=== PATIENT | female | born 1995 | race Caucasian/White ===

== ENCOUNTER 2018-07-08 12:49 | Emergency (ER) | payer OTHER ==
[2018-07-08 13:34] VITALS: BP 101/63
[2018-07-08] MEDS ORDERED: predniSONE TAB* 20 MG PO ONE ×2 (14:32→14:33)
--- NOTE | 2018-07-08 14:40 | UC ---
Skin Complaint HPI - HPI Summary HPI Summary: Patient was stug by a bee yesterday, today the under side of ther right arm has a large raised red hive from the reaction site. no other symptoms - History of Current Complaint Chief Complaint: UCSkin Time Seen by Provider: 07/08/18 14:26 Stated Complaint: BEE STING Hx Obtained From: Patient Hx Last Menstrual Period: 06/19/18 ?: No Onset/Duration: Sudden Onset, Lasting Hours Skin Exposure Onset/Duration: Hours Ago Timing: Constant Onset Severity: Mild Current Severity: Moderate Pain Intensity: 0 Location: Discrete Character: Pruritus, Hives, Redness, Raised Aggravating Factor(s): Nothing - Allergy/Home Medications Allergies/Adverse Reactions: Allergies Allergy/AdvReac Type Severity Reaction Status Date / Time No Known Allergies Allergy Verified 07/08/18 13:24 Review of Systems Constitutional: Negative Skin: Rash Eyes: Negative ENT: Negative Respiratory: Negative Cardiovascular: Negative Gastrointestinal: Negative Genitourinary: Negative Motor: Negative Neurovascular: Negative Musculoskeletal: Negative Neurological: Negative Psychological: Negative Is Patient Immunocompromised?: No All Other Systems Reviewed And Are Negative: Yes PMH/Surg Hx/FS Hx/Imm Hx Previously Healthy: Yes - Surgical History Surgical History: None - Family History Known Family History: Negative: Hypertension - Social History Alcohol Use: None Substance Use Type: None Smoking Status (MU): Never Smoked Tobacco Have You Smoked in the Last Year: No - Immunization History Most Recent Influenza Vaccination: 06/24/14 Most Recent Tetanus Shot: 10/01/14 Most Recent Pneumonia Vaccination: never Vaccination Up to Date: Yes Physical Exam Triage Information Reviewed: Yes Appearance: Well-Appearing, Well-Nourished, Pain Distress Vital Signs: Initial Vital Signs Temp 98.2 F 07/08/18 13:25 Pulse 66 07/08/18 13:25 Resp 16 07/08/18 13:25 BP 101/63 07/08/18 13:25 Pulse Ox 100 07/08/18 13:25 Vital Signs Reviewed: Yes Eye Exam: Normal ENT Exam: Normal Dental Exam: Normal Neck exam: Normal Respiratory Exam: Normal Respiratory: Positive: Chest non-tender, Lungs clear, Normal breath sounds Cardiovascular Exam: Normal Cardiovascular: Positive: RRR, No Murmur, Pulses Normal Abdominal Exam: Normal Abdomen Description: Positive: Nontender, No Organomegaly, Soft Musculoskeletal Exam: Normal Musculoskeletal: Positive: Strength Intact Neurological Exam: Normal Psychological Exam: Normal Skin: Positive: significant lesion(s) - large hive under the right arm Course/Dx - Course Course Of Treatment: hx obtained, exam performed, meds reviewed, steroids given and prescribed. - Differential Diagnoses - Skin Complaint Differential Diagnoses: Allergic Reaction, Cellulitis, Contact Dermatitis - Diagnoses Provider Diagnoses: allergic reaction to bee sting Discharge - Sign-Out/Discharge Documenting (check all that apply): Patient Departure All imaging exams completed and their final reports reviewed: No Studies - Discharge Plan Condition: Stable Disposition: HOME Prescriptions: predniSONE TAB* [Deltasone 20 MG TAB*] 20 mg PO DAILY #18 tab Referrals: No Primary Care Phys,NOPCP [Primary Care Provider] - Additional Instructions: 1. take the medication as prescribed. 2 Follow up if you develop increased redness, swelling or fever - Billing Disposition and Condition Condition: STABLE Disposition: Home
== END 2018-07-08 14:45 | disposition home or self-care (01) ==
LOC: UCCORT 12:49
DX: T63.441A Toxic effect of venom of bees, accidental (unintentional), initial encounter (principal); L50.9 Urticaria, unspecified; Y92.9 Unspecified place or not applicable
CPT/HCPCS: 99212; G0463; J7512

== ENCOUNTER 2018-10-14 10:32 | Emergency (ER) | payer OTHER ==
--- NOTE | 2018-10-14 10:51 | UC ---
Respiratory Complaint HPI - HPI Summary HPI Summary: Patient is a 23 year old female, who present today to the urgent care with cold symptoms for past 2 days She works at [employer] and reports a sick contact at work. Reports cough productive of greenish phlegm and sore throat along with the right ear pain today morning Denies any body aches fevers or chills. Denies any chest pain or shortness of breath. Denies any abdominal pain , nausea or vomiting , diarrhea or constipation. - History of Current Complaint Chief Complaint: UCGeneralIllness Stated Complaint: COUGH Time Seen by Provider: 10/14/18 10:44 Hx Obtained From: Patient Hx Last Menstrual Period: 10/11/18 ?: No Pain Intensity: 8 - Allergies/Home Medications Allergies/Adverse Reactions: Allergies Allergy/AdvReac Type Severity Reaction Status Date / Time No Known Allergies Allergy Verified 10/14/18 10:39 Home Medications: Home Medications Midodrine HCl 5 mg PO TID 10/14/18 [History Confirmed 10/14/18] PMH/Surg Hx/FS Hx/Imm Hx - Additional Past Medical History Additional PMH: Low blood pressure on midodrine Previously Healthy: Yes - Surgical History Surgical History: None Surgery Procedure, Year, and Place: denies - Family History Known Family History: Negative: Hypertension - Social History Alcohol Use: None Substance Use Type: None Smoking Status (MU): Never Smoked Tobacco Have You Smoked in the Last Year: No - Immunization History Most Recent Influenza Vaccination: 06/24/14 Most Recent Tetanus Shot: 10/01/14 Most Recent Pneumonia Vaccination: never Vaccination Up to Date: Yes Review of Systems All Other Systems Reviewed And Are Negative: Yes Constitutional: Positive: Negative Skin: Positive: Negative Eyes: Positive: Negative ENT: Positive: Sore Throat, Other - Congestion Respiratory: Positive: Cough - Productive of greenish phlegm Cardiovascular: Positive: Negative Gastrointestinal: Positive: Negative Genitourinary: Positive: Negative Motor: Positive: Negative Neurovascular: Positive: Negative Musculoskeletal: Positive: Negative Neurological: Positive: Negative Psychological: Positive: Negative Is Patient Immunocompromised?: No Physical Exam - Summary Physical Exam Summary: Physical Exam: Const: Appears well. No signs of apparent distress present. Alert and oriented x 3. Musculo: Walks with a normal gait. Head/Face: Atraumatic, normocephalic on inspection. Eyes: EOMI and PERRLA in both eyes. Conjunctivae clear. No discharge noted ENT: Hearing normal, right TM normal appearing, left TM not visualized due to wax Mild pharyngeal erythema without any exudates No tender lymphadenopathy noted Respiratory: Respirations are unlabored. Lungs clear to auscultation bilaterally, no wheezing , rhonchi or rales noted . CVS: Regular rate and Rhythm, S1S2 normal , no murmurs identified. Extremities: Peripheral circulation is grossly normal. Pulses 2+ Abdomen : Soft non tender , nondistended , Bowel sounds present . No guarding , rebound tenderness or rigidity noted. Skin: No lesions or rash located on the upper extremities or on the lower extremities. Neuro: Cranial nerves II to XII intact, motor and sensory intact. DTR Intact bilaterally. Mood is normal. Affect is normal. Triage Information Reviewed: Yes Vital Signs: Initial Vital Signs Temp 97.9 F 10/14/18 10:35 Pulse 81 10/14/18 10:35 Resp 18 10/14/18 10:35 BP 114/73 10/14/18 10:35 Pulse Ox 98 10/14/18 10:35 Vital Signs Reviewed: Yes Diagnostic Evaluation - Laboratory O2 Sat by Pulse Oximetry: 98 Respiratory Course/Dx - Course Course Of Treatment: During the visit today, we obtained a rapid flu and strep test , both of which tested negative. We discussed the findings and further plan to treat it as a viral illness. Patient expressed understanding . - Differential Dx/Diagnosis Provider Diagnosis: Viral URI with cough Discharge - Sign-Out/Discharge Documenting (check all that apply): Patient Departure All imaging exams completed and their final reports reviewed: No Studies - Discharge Plan Condition: Stable Disposition: HOME Patient Education Materials: Viral Syndrome (ED) Referrals: No Primary Care Phys,NOPCP [Primary Care Provider] - [facility] [place] [facility] [Outside] - 1 Week Additional Instructions: He seemed to have viral illness. Keep yourself hydrated. Saltwater gargles and throat lozenges will be helpful. Take ibuprofen as needed for fever. Follow up with primary care doctor in a week. Return to Urgent care / ER if symptoms get worse. - Billing Disposition and Condition Condition: STABLE Disposition: Home
[2018-10-14 11:01] VITALS: BP 114/73
[2018-10-14 11:23] LABS: Influenza A Molecular NEGATIVE (Negative); Influenza B Molecular NEGATIVE (Negative)
== END 2018-10-14 11:48 | disposition home or self-care (01) ==
LOC: UCEAST 10:32
DX: J06.9 Acute upper respiratory infection, unspecified (principal); R05 Cough; I95.9 Hypotension, unspecified
CPT/HCPCS: 87651; 99211; G0463

== ENCOUNTER 2019-03-25 21:18 | Emergency (ER) | payer MEDICAID, OTHER ==
[2019-03-25 21:23] VITALS: BP 122/79
--- OUTSIDE RECORDS SUMMARY | 2019-03-25 21:28 | XMS REPORT | Continuity of Care Document ---
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 Payers Date Identification Numbers Payment Provider Subscriber Policy Number: [id number] [facility] Eula Tan PayID: [id number] [address] [place] [address] Policy Number: [id number] Medicaid [place] Eula Tan PayID: [id number] [address] [place] [address] Family History Date Family Member(s) Observation Comments Father A&W Mother A&W First Son A&W First Brother Enlarged Heart Second Brother A&W First Sister A&W Paternal Grandfather due to Old Age () Paternal Grandmother A&W Maternal Grandfather [place] Maternal Grandfather Kidney Disease Maternal Grandfather Lung problems Maternal Grandmother A&W Social History Type Date Description Comments Sex Unknown Education Highest level completed, 12th grade Marital Status Single Lives With Boyfriend Lives With Son Pets 3 dogs Pets 2 cats Pets 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 Tobacco Use Start: Unknown Never Smoked Cigarettes ETOH Use Denies alcohol use Recreational Drug Use Denies Drug Use Tobacco Use Start: Unknown Patient has never smoked Smoking Status Reviewed: 03/01/19 Patient has never smoked Exercise Type/Frequency Exercises sporadically Seat Belt/Car Seat Always uses seat belt STD's No STD History Allergies, Adverse Reactions, Alerts Description No Known Drug Allergies Medications Active Medications SIG Qnty Indications Ordering Provider Date One Daily 1 by mouth 90tabs ERIN Mathis 05/26/2014 every day 27-0.8mg Tablets History Medications Dicloxacillin Sodium 1 tablet by Jackelyn Harrell MD 02/17/2015 - 500mg mouth every 6 03/01/2019 Capsules hours Dicloxacillin Sodium 1 tablet by 40capgodfrey Vaughn CNM 01/23/2015 - 500mg mouth every 6 02/04/2015 Capsules hours Keflex 1 by mouth four 28caps Ike Brown, 10/19/2014 - 250mg Capsules times a day x 7 M.D. 10/28/2014 days No Active Medications Unknown 09/19/2013 - 05/26/2014 Medications Administered in Office Medication SIG Qnty Indications Ordering Provider Date PT SCRN Tbco Id as Non User Bren Julian CNM 03/01/2019 Injection PT SCRN Tbco Id as Non User Jackelyn Virk MD 02/15/2019 Injection Immunizations CPT Code Status Date Vaccine Lot # [id number] Given 10/01/2014 Tetnus, Diptheria Toxoids And Acellular Pertussis, [id number] PT > 7Yrs Old [id number] Given 06/24/2014 Influenza Virus Vaccine 3Years Or Older Vital Signs Date Vital Result Comment 03/01/2019 10:03am BP Systolic 112 mmHg BP Diastolic 72 mmHg Height 70 inches 5'10" Weight 233.00 lb BMI (Body Mass Index) 33.4 kg/m2 5 Parity 1 02/15/2019 8:52am BP Systolic 116 mmHg BP Diastolic 60 mmHg Height 70 inches 5'10" Weight 229.00 lb BMI (Body Mass Index) 32.9 kg/m2 Last Menstrual Period 1697171 4 Parity 1 01/03/2019 12:59pm BP Systolic 112 mmHg BP Diastolic 68 mmHg Height 70 inches 5'10" Weight 232.00 lb BMI (Body Mass Index) 33.3 kg/m2 Last Menstrual Period 1998452 4 Parity 1 02/17/2015 8:06am BP Systolic 120 mmHg BP Diastolic 82 mmHg Height 70 inches 5'10" Weight 197.00 lb BMI (Body Mass Index) 28.3 kg/m2 Last Menstrual Period 2208413 3 Parity 1 02/11/2015 9:58am BP Systolic 124 mmHg BP Diastolic 64 mmHg Body Temperature 98.6 F Height 70 inches 5'10" Weight 200.00 lb BMI (Body Mass Index) 28.7 kg/m2 3 Parity 1 01/26/2015 1:03pm BP Systolic 122 mmHg BP Diastolic 70 mmHg Height 70 inches 5'10" Weight 206.00 lb BMI (Body Mass Index) 29.6 kg/m2 Last Menstrual Period 2590169 3 Parity 1 01/23/2015 1:56pm BP Systolic 104 mmHg BP Diastolic 62 mmHg Body Temperature 98.4 F Height 70 inches 5'10" Weight 206.00 lb BMI (Body Mass Index) 29.6 kg/m2 Last Menstrual Period 7537891 3 Parity 1 09/22/2014 10:33am BP Systolic 124 mmHg BP Diastolic 76 mmHg Height 70 inches 5'10" Weight 208.00 lb BMI (Body Mass Index) 29.8 kg/m2 Last Menstrual Period 3039703 3 Parity 0 05/26/2014 1:33pm BP Systolic 118 mmHg BP Diastolic 68 mmHg Height 70 inches 5'10" Weight 180.00 lb BMI (Body Mass Index) 25.8 kg/m2 Last Menstrual Period 3986924 3 Parity 0 09/19/2013 3:05pm BP Systolic 102 mmHg BP Diastolic 58 mmHg Height 70 inches 5'10" Weight 176.00 lb BMI (Body Mass Index) 25.3 kg/m2 Last Menstrual Period 5636596 1 Parity 0 Results Test Date Facility Test Result H/L Range Note Laboratory test 01/25/2019 [facility] HCG < 0.60 1 [place] [address] mIU/mL [phone] Laboratory test 01/07/2019 [facility] HCG 14.44 mIU/ mL 2 [place] [address] [phone] Laboratory test 01/03/2019 [facility] HCG 167.61 3 [place] [address] mIU/mL [phone] CBC With No Diff 01/01/2015 [facility] White Blood 6.9 10^3/uL N 4.8-10.8 [place] [address] Count [phone] Red Blood Count 3.64 10^6/uL Low 4.0-5.4 Hemoglobin 11.2 g/dL Low 12.0-16.0 Hematocrit 33 % Low 35-47 Mean Corpuscular Volume 91 fL N 80-97 Mean Corpuscular Hemoglobin 31 pg N 27-31 Mean Corpuscular HGB Conc 34 g/dL N 31-36 Red Cell Distribution Width 13 % N 10.5-15 Platelet Count 163 10^3/uL N 150-450 Mean Platelet Volume 8 um3 N 7.4-10.4 Laboratory test 11/28/2014 [facility] Group B Strep (SEE NOTE) 4 [place] [address] Culture Screen [phone] Urine Culture And 11/28/2014 [facility] Urine Culture (SEE NOTE ) 5 Sensitivities [place], [place] [address] [phone] Urinalysis Profile 10/19/2014 [facility] [place] [address] [phone] Urine Appearance Cloudy N Urine Specific [place] 1.015 N 1.010-1.030 Urine pH 6.0 N 5-9 Urine Urobilinogen Negative N Negative Urine Ketones Negative N Negative Urine Protein 2+(100 mg/dL) Abnormal Negative Urine Leukocytes 1+ Abnormal Negative Urine Blood 3+ Abnormal Negative Urine Nitrite Negative N Negative Urine Bilirubin Negative N Negative Urine Glucose Negative N Negative Urine White Blood Cell 3+(>20/hpf) Abnormal Absent Urine Red Blood Cell 3+(>10/hpf) Abnormal Absent Urine Bacteria Absent N Absent Urine Squamous Epithelial Cell Present Abnormal Absent Urine Culture And 10/19/2014 [facility] Urine Culture (SEE NOTE ) 6 [place] [address] [phone] Laboratory test 10/01/2014 [facility] Glucose 1 HR 76 mg/dL N 70-160 [place] [address] Post Prandial [phone] CBC With No Diff 10/01/2014 [facility] White Blood 8.4 10^3/uL N 4.8-10 [place] [address] Count .8 [phone] Red Blood Count 3.50 10^6/uL Low 4.0-5.4 Hemoglobin 11.6 g/dL Low 12.0-16.0 Hematocrit 34 % Low 35-47 Mean Corpuscular Volume 98 fL High 80-97 Mean Corpuscular Hemoglobin 33 pg High 27-31 Mean Corpuscular HGB Conc 34 g/dL N 31-36 Red Cell Distribution Width 12 % N 10.5-15 Platelet Count 196 10^3/uL N 150-450 Mean Platelet Volume 11 um3 High 7.4-10.4 Urine Culture And 07/22/2014 [facility] Urine Culture (SEE NOTE ) 7 [place] [address] [phone] Rubella AB Igg 07/22/2014 [facility] Rubella AB (Igg) 2.10 8 Sequential 07/22/2014 [facility] Interpretation SEE BELOW 9 Integreated SCRN 2 [place] Risk For Ontd <1:5000 Age Risk Down Syndrome 1:1100 MATIAS Down Syndrome Risk <1:5000 <1:270 MATIAS Trisomy 18 Risk <1:5000 <1:100 Calculated Gestational Age 17.6 10 Afp,Serum 30.8 NG/ML Afp Mom 0.74 11 HCG,Serum 22.2 IU/mL HCG Mom 0.86 Estriol,Free 1.06 NG/ML Estriol Mom 0.92 Inhibin A,Dimeric 93 pg/mL Inhibin A Mom 0.59 Vahe-A 722 NG/ML Vahe-A Mom 0.64 NT Mom 1.04 12 Referring Physician Name FABIANO Referring Physician Phone [phone] Referring Physician Npi [id number] Specimen # From Part 1 [id number] Date Of 1995 Collection Date 07/22/2014 Maternal Weight 180 LBS Est'd Date Of Delivery 12/24/2014 Nuchal Translucency 1.8 MM Tignall Rump Length 79 MM Ultrasound Date 06/24/2014 Nasal Bone NOT GIVEN Mother's Ethnic Origin Insulin Depend Diabetic NO Repeat Specimen NO Number Of Fetuses 1 HX Of Neural Tube Defects NO Twin B Nasal Bone NG 13 Sequential Integrated SCRN 1 [place] 06/24/2014 [facility] Interpretation SEE BELOW 14 Age Risk Down Syndrome 1:850 MATIAS Down Syndrome Risk IN PROCESS <1:50 MATIAS Trisomy 18 Risk IN PROCESS <1:100 Calculated Gestational Age 13.6 15 Vahe-A 722 NG/ML Vahe-A Mom 0.64 HCG,Serum 58.4 IU/mL HCG Mom 0.88 NT Mom 1.04 16 Referring Physician Name IKE BROWN 17 Referring Physician 18 Referring Physician Npi [id number] Date Of 1995 20 Collection Date 06/24/2014 21 Maternal Weight 180 LBS 22 Est'd Date Of Delivery 12/24/2014 23 JARAD Determined By ULTRASOUND 24 Mother's Ethnic Origin 25 Number Of Fetuses 1 26 Insulin Depend Diabetic NO 27 Repeat Specimen NO 28 HX Of Neural Tube Defects NO 29 Brief History (NTD) NOT GIVEN 30 Prev Down Synd NO 31 Donor Egg NO 32 Donor Age:Egg Retrieval NOT GIVEN 33 Ultrasound Date 06/24/2014 34 Commercial Sales Specialist's Name CASSY 35 NTQR Commercial Sales Specialist Id# [id number] NTQR Location Id# [id number] NTQR Reading Phys Id# [id number] FMF Commercial Sales Specialist Id# NOT GIVEN 39 Tignall Rump Length 79 MM 40 Nuchal Translucency 1.8 MM 41 Nasal Bone NOT GIVEN 42 If Twins NOT GIVEN 43 Twin B CRL NG MM 44 Twin B NT NG MM 45 Twin B Nasal Bone NG 46 Rubella AB Igg 06/24/2014 [facility] Rubella AB 2.18 47 (Igg) GC/Chlamydia 05/26/2014 [facility] GC/Chlamydia (SEE NOTE) 48 [place] [address] Rna [phone] HIV 1/2 AB 05/26/2014 [facility] HIV 1 2 Nonreactive N Nonreactive 49, 50 [place] [address] Antibody [phone] Type And Screen 05/26/2014 [facility] [place] [address] Type [phone] Antibody Screen NEGATIVE N CBC With No 05/26/2014 [facility] White Blood 5.2 10^3/uL N 4.8-10.8 [place] [address] Count [phone] Red Blood Count 3.75 10^6/uL Low 4.0-5.4 Hemoglobin 12.4 g/dL N 12.0-16.0 Hematocrit 35 % N 35-47 Mean Corpuscular Volume 94 fL N 80-97 Mean Corpuscular Hemoglobin 33 pg High 27-31 Mean Corpuscular HGB Conc 35 g/dL N 31-36 Red Cell Distribution Width 13 % N 10.5-15 Platelet Count 225 10^3/uL N 150-450 Mean Platelet Volume 8 um3 N 7.4-10.4 RPR 05/26/2014 [facility] Syphilis [place] [address] [phone] RPR Nonreactive N Nonreactive RPR Titer TNP N Pediatric/Maternal YES N PNL 05/26/2014 [facility] Rubella Equivocal [place] [address] Screen IU/mL noted [phone] Hemoglobin A1c 5.1 % N Less than 6.0 51 Hepatitis B Surface Antigen Nonreactive N Nonreactive 52 Toxoplasma AB(Igg,M),Eia 05/26/2014 [facility] Toxoplasma Igg AB <0.91 53 Toxoplasma Igm AB NEGATIVE Cystic Fibrosis Carrier ([place]) 05/26/2014 [facility] Reported Ethnicity see note 54 CF Result see note 55 Interpretation see note 56 Mutations/Polymorphisms see note 57 Method see note 58 Reviewer see note 59 Laboratory 09/30/2013 [facility] Beta HCG 4.0 MIU/ML 0.0-5.0 60 [place] [address] Quantitative [phone] Laboratory 09/26/2013 [facility] Beta HCG 10.0 MIU/ML High 0.0 -5.0 61 [place] [address] Quantitative [phone] Laboratory 09/20/2013 [facility] Beta HCG 138.0 High 0.0-5.0 62 [place] [address] Quantitative MIU/ML [phone] Type And 09/20/2013 [facility] [place] [address] Type [phone] Antibody Screen NEGATIVE 1 <5.0 Negative 5.0 - 25.0 Indeterminate (Repeat testing recommended after 72 hours) >25.0 Positive Perimenopausal women can display HCG levels of up to 20 mIU/mL 2 <5.0 Negative 5.0 - 25.0 Indeterminate (Repeat testing recommended after 72 hours) >25.0 Positive Perimenopausal women can display HCG levels of up to 20 mIU/mL 3 <5.0 Negative 5.0 - 25.0 Indeterminate (Repeat testing recommended after 72 hours) >25.0 Positive Perimenopausal women can display HCG levels of up to 20 mIU/mL 4 RUN DATE: 12/01/14 [facility] LAB LIVE PAGE 1 RUN TIME: [address] [place] [address] Specimen Inquiry Name: EULA TAN : [address]: Ike Brown MD Acct: [id number] Unit: [id number] AGE: 19 Location: [facility] Re11/28/14 SEX: F Status: REG REF SPEC: [id number] SOLO: 11/28/14-[address]: Ike Brown MD REQ: [id number] RECD: 11/28/14 STATUS: COMP _ SOURCE: CER/VAG/RE SPDESC: ORDERED: Grp B Strp Scrn QUERIES: Is Patient Penicillin Allergic? N Is patient penicillin allergic and/or sensitivities needed? N Provider Requisition # [id number] Procedure Result Verified Site Group B Strep Culture Screen Final 12/01/14- 0842 ML Group B Strep Screen Positive Organism 1 STREP GROUP B Susceptibility testing of penicillins and other B-lactams approved by FDA for treatment of Streptococcus pyogenes (Group A Strep) and Streptococcus agalactiae (Group B Strep) is not necessary for clinical purposes and need not be done routinely, since as with vancomycin, resistant strains have not been recognized. (CLSI X675-F95;p.66) Positive isolates will be saved for one week. Please call the Microbiology Laboratory if further susceptibility testing is needed. END OF REPORT * ML=Testing performed at Main Lab DEPARTMENT OF PATHOLOGY, [facility] [employer] [place], [place] [address] Marcello Fuentes M.D. Director [facility] # [id number] RUN DATE: 11/30/14 [facility] LAB LIVE PAGE 1 RUN TIME: [address] [facility] [employer] [place], [place] [address] Specimen Inquiry Name: EULA TAN : [address]: Ike Brown MD Acct: [id number] Unit: [id number] AGE: 19 Location: [facility] Re11/28/14 SEX: F Status: REG REF SPEC: [id number] SOLO: 11/28/14-[address] [facility] DR: Ike Brown MD REQ: [id number] RECD: 11/28/14 STATUS: COMP _ SOURCE: URINE SPDESC: ORDERED: Urine Culture QUERIES: Provider Requisition # [id number] Procedure Result Verified Site Urine Culture Final 11/30/14- 1045 ML No Growth Day 2 (<1,000 CFU/mL) END OF REPORT * ML=Testing performed at Main Lab DEPARTMENT OF PATHOLOGY, [facility] [employer] [place], [place] [address] Marcello Fuentes M.D. Director [place] # [id number] 6 RUN DATE: 10/21/14 [facility] LAB LIVE PAGE 1 RUN TIME: 101 [address] [employer] [place], [place] [address] Specimen Inquiry Name: EULA TAN : [address]: Ike Brown MD Acct: [id number] Unit: [id number] AGE: 19 Location: [facility] Re10/19/14 SEX: F Status: DEP REF SPEC: [id number] SOLO: 10/19/140945 [facility] DR: Ike Brown MD REQ: [id number] RECD: 10/19/14 STATUS: WEN LUCERO DR: Sherry Fuller MD _ SOURCE: URINE SPDESC: ORDERED: Urine Culture QUERIES: Urine Source: Clean Catch Procedure Result Verified Site Urine Culture Final 10/21/14- 1019 ML No Growth Day 2 (<1,000 CFU/mL) END OF REPORT * ML=Testing performed at Main Lab DEPARTMENT OF PATHOLOGY, [facility] [employer] [place] [address] Marcello Fuentes M.D. Director [facility] # [id number] 7 RUN DATE: 07/25/14 [facility] LAB LIVE PAGE 1 RUN TIME: [address] [facility] [employer] [place], [place] [address] Specimen Inquiry Name: TANEULA Philippe : [address]: Lucas Yeager MD Acct: [id number] Unit: [id number] AGE: 19 Location: [facility] Re07/22/14 SEX: F Status: REG REF SPEC: [id number] SOLO: 07/22/[address] [facility] DR: Lucas Yeager MD REQ: [id number] RECD: 07/23/14 STATUS: COMP _ SOURCE: URINE SPDESC: ORDERED: Urine Culture QUERIES: Medent Number [id number] Procedure Result Verified Site Urine Culture Final 07/25/14- 1144 ML Organism 1 NORMAL EPIFANIO Cosby Count 1-10,000 (Few) CFU/ML END OF REPORT * ML=Testing performed at Main Lab DEPARTMENT OF PATHOLOGY, [address] [place] [address] Marcello Fuentes M.D. Director [facility] # [id number] INDEX VALUE RESULTS INTERPRETATION ------- < OR=0.90 NEGATIVE NOT CONSISTENT WITH IMMUNITY 0.91 - 1.09 EQUIVOCAL > OR=1.10 POSITIVE CONSISTENT WITH IMMUNITY THE PRESENCE OF RUBELLA IGG ANTIBODY SUGGESTS IMMUNIZATION OR PAST OR CURRENT INFECTION WITH RUBELLA VIRUS. 9 SCREEN NEGATIVE FOR OPEN NTD, DOWN SYNDROME AND TRISOMY 18. NT WAS USED IN THE RISK CALCULATIONS. 10 Tignall rump length (CRL) was used to calculate gestational age. JARAD, if provided, was not used for gestational age dating. 11 Reference Range: <2.50 IDD <1.90 TWINS <4.00 TWINS IDD <3.50 TRIPLETS <4.50 12 The Sequential Integrated Screen combines VAHE-A and hCG with or without a nuchal translucency measurement in the first trimester with AFP, unconjugated estriol, intact hCG and Inhibin A in the second trimester. This provides a useful screening test for detection of open neural tube defects, Down syndrome and Trisomy 18. It should be noted that normal results can never guarantee the of a normal baby and that 2 to 3 percent of newborns have some type of physical or mental defect, many of which are undetectable through any known diagnostic technique. Interpretation reviewed by: Angelina [place], Ph.D., [facility]. This is a screening test, not a diagnostic test. This risk assessment is based on demographic data provided by the ordering physician. Please notify the laboratory promptly if any data are incorrect. If you have questions concerning this report: For clinical consultation, call ; For technical questions, call ext [phone]; For recalculations, fax to . This test was developed and its performance characteristics have been determined by [facility]. Performance characteristics refer to the analytical performance of the test. 13 For additional information, please refer to http://[email or web address].Xplornet/faq/FAQ94 (This link is provided for informational/educational purposes only.) 14 This patient's risk does not exceed the first trimester cut-off for Down syndrome or trisomy 18. The integrated screen calculation is awaiting the second trimester sample. NT WAS USED IN THE RISK CALCULATIONS. Thank you for submitting this patient's Part 1 specimen. These first trimester values will be incorporated with the second trimester values as part of the integrated testing process. Please submit the Part 2 specimen between 07/04/2014-08/28/2014 (15.0 and 22.9 weeks gestation) with 07/04/2014-07/17/2014 (15.0 - 16.9 weeks gestation) being optimal. When submitting Part 2, please include the following Specimen # from Part 1: [id number] 15 Tignall rump length (CRL) was used to calculate gestational age. JARAD, if provided, was not used for gestational age dating. 16 Interpretation reviewed by: Alvaro Mccloud, Ph.D., [facility] This is a screening test, not a diagnostic test. This risk assessment is based on demographic data provided by the ordering physician. Please notify the laboratory promptly if any data are incorrect. If you have questions concerning this report: For clinical consultation, call ; For technical questions, call ext [phone]; For recalculations, fax to . This test was developed and its performance characteristics have been determined by [facility]. Performance characteristics refer to the analytical performance of the test. For additional information, please refer to http://[email or web address].Xplornet/faq/FAQ89 (This link is being provided for informational/educational purposes only.) 17 For additional information, please refer to http://[email or web address].Xplornet/faq/FAQ89 (This link is being provided for informational/educational purposes only.) 18 For additional information, please refer to http://[email or web address].Xplornet/faq/FAQ89 (This link is being provided for informational/educational purposes only.) 19 For additional information, please refer to http://Netviewer.[employer]/faq/FAQ89 (This link is being provided for informational/educational purposes only.) 20 For additional information, please refer to http://[employer]/faq/FAQ89 (This link is being provided for informational/educational purposes only.) 21 For additional information, please refer to http://[employer]/faq/FAQ89 (This link is being provided for informational/educational purposes only.) 22 For additional information, please refer to http://[employer]/faq/FAQ89 (This link is being provided for informational/educational purposes only.) 23 For additional information, please refer to http://[employer]/faq/FAQ89 (This link is being provided for informational/educational purposes only.) 24 For additional information, please refer to http://[employer]/faq/FAQ89 (This link is being provided for informational/educational purposes only.) 25 For additional information, please refer to http://[employer]/faq/FAQ89 (This link is being provided for informational/educational purposes only.) 26 For additional information, please refer to http://[employer]/faq/FAQ89 (This link is being provided for informational/educational purposes only.) 27 For additional information, please refer to http://[employer]/faq/FAQ89 (This link is being provided for informational/educational purposes only.) 28 For additional information, please refer to http://[employer]/faq/FAQ89 (This link is being provided for informational/educational purposes only.) 29 For additional information, please refer to http://[employer]/faq/FAQ89 (This link is being provided for informational/educational purposes only.) 30 For additional information, please refer to http://[employer]/faq/FAQ89 (This link is being provided for informational/educational purposes only.) 31 For additional information, please refer to http://[employer]/faq/FAQ89 (This link is being provided for informational/educational purposes only.) 32 For additional information, please refer to http://[employer]/faq/FAQ89 (This link is being provided for informational/educational purposes only.) 33 For additional information, please refer to http://[employer]/faq/FAQ89 (This link is being provided for informational/educational purposes only.) 34 For additional information, please refer to http://[employer]/faq/FAQ89 (This link is being provided for informational/educational purposes only.) 35 For additional information, please refer to http://[employer]/faq/FAQ89 (This link is being provided for informational/educational purposes only.) 36 For additional information, please refer to http://[employer]/faq/FAQ89 (This link is being provided for informational/educational purposes only.) 37 For additional information, please refer to http://[employer]/faq/FAQ89 (This link is being provided for informational/educational purposes only.) 38 For additional information, please refer to http://[employer]/faq/FAQ89 (This link is being provided for informational/educational purposes only.) 39 For additional information, please refer to http://[employer]/faq/FAQ89 (This link is being provided for informational/educational purposes only.) 40 For additional information, please refer to http://[employer]/faq/FAQ89 (This link is being provided for informational/educational purposes only.) 41 For additional information, please refer to http://[employer]/faq/FAQ89 (This link is being provided for informational/educational purposes only.) 42 For additional information, please refer to http://[employer]/faq/FAQ89 (This link is being provided for informational/educational purposes only.) 43 For additional information, please refer to http://[employer]/faq/FAQ89 (This link is being provided for informational/educational purposes only.) 44 For additional information, please refer to http://Netviewer.[employer]/faq/FAQ89 (This link is being provided for informational/educational purposes only.) 45 For additional information, please refer to http://Netviewer.[employer]/faq/FAQ89 (This link is being provided for informational/educational purposes only.) 46 For additional information, please refer to http://Netviewer.[employer]/faq/FAQ89 (This link is being provided for informational/educational purposes only.) 47 INDEX VALUE RESULTS INTERPRETATION ------- < OR=0.90 NEGATIVE NOT CONSISTENT WITH IMMUNITY 0.91 - 1.09 EQUIVOCAL > OR=1.10 POSITIVE CONSISTENT WITH IMMUNITY THE PRESENCE OF RUBELLA IGG ANTIBODY SUGGESTS IMMUNIZATION OR PAST OR CURRENT INFECTION WITH RUBELLA VIRUS. 48 RUN DATE: 05/29/14 [facility] LAB LIVE PAGE 1 RUN TIME: [address] [place] [id number] Specimen Inquiry Name: EULA TAN : [address]: Alexa Alvarado CNP Acct: [id number] Unit: [id number] AGE: 19 Location: [facility] Re05/26/14 SEX: F Status: REG REF SPEC: [id number] SOLO: 05/26/14-[address] [facility] DR: Alexa Alvarado CNP REQ: [id number] RECD: 05/26/14 STATUS: COMP _ SOURCE: ENDOCERVIX SPDESC: ORDERED: GC/Chlam RNA QUERIES: Medent Number [id number] Procedure Result Verified Site Chlamydia Trachomatis RNA Final 05/29/14- 1342 ML NEGATIVE for Chlamydia trachomatis rRNA GC (N. gonorrhoeae) RNA Final 05/29/14- 1342 ML NEGATIVE for Neisseria gonorrhoeae rRNA A negative result does not preclude the presence of a C. trachomatis or N. gonorrhoeae infection because results are dependent on adequate specimen collection, absence of inhibitors, and sufficient rRNA to be detected. Test results may be affected by improper specimen collection, improper storage, technical error, or specimen mixup. Limitations of the Procedure: The Aptima Combo 2 Assay is not intended for the evaluation of suspected sexual abuse or for other medico-legal indications. For those patients for whom a false positive result may have adverse psychosocial impact, the [facility] recommends retesting by a method using an alternate technology. Therapeutic failure or success cannot be determined with the Aptima Combo 2 Assay since nucleic acid may persist following appropriate antimicrobial therapy. Results from the Aptima Combo 2 Assay should be interpreted in conjunction with other laboratory and clinical data available to the clinican. CONTINUED ON NEXT PAGE * ML=Testing performed at Main Lab DEPARTMENT OF PATHOLOGY, [facility] [employer] [place] [id number] Marcello Fuentes M.D. Director [facility] # [id number] RUN DATE: 05/29/14 [facility] LAB LIVE PAGE 2 RUN TIME: [address] [place] [address] Specimen Inquiry Patient: EULA TAN [id number] (Continued) Specimen: [id number] Collected: 05/26/14-1351 Received: 05/26/14-1541 (Continued) Procedure Result Verified Site GC (N. gonorrhoeae) RNA Final (continued) 05/29/14- 1342 Performance characteristics for detecting C. trachomatis and N. gonorrhoeae are derived from high prevalence populations. Positive results in low prevalence populations should be interpreted carefully with the understanding that the likelihood of a false positive may be higher than a true positive. END OF REPORT * ML=Testing performed at Main Lab DEPARTMENT OF PATHOLOGY, [address] [place] [address] Marcello Fuentes M.D. Director [facility] # [id number] 49 SCREENING NOS 50 It is recognized that currently available assays for the detection of antibodies to HIV-1 and/or HIV-2 may not detect all infected individuals. HIV antibodies may be undetectable in some stages of the infection and in some clinical conditions. The performance of this assay has not been established for populations of infants or children. Assayed by Chemiluminescence Microparticle Immunoassay on the Siemens Advia Centaur CP. Values obtained with different methods or kits cannot be used interchangeably.The diagnostic specificity of the ADVIA Centaur 1/O/2 Enhanced assay in the low risk population was 99.90% (6052/6058) with a 95% confidence interval of 99.78 to 99.96%. 51 Therapeutic target for the treatment of diabetes Mellitus patients is <7% HBA1C, and in selective patients <6.0%.Please refer to [place] [employer] Diabetic care guidelines for further information. 52 YES 53 INDEX VALUE RESULTS INTERPRETATION ------- < OR=0.90 NEGATIVE NO TOXOPLASMA IGG ANTIBODY DETECTED 0.91 - 1.09 EQUIVOCAL PRESENCE OR ABSENCE OF TOXOPLASMA IGG ANTIBODY CANNOT BE DISCERNED > OR=1.10 POSITIVE TOXOPLASMA IGG ANTIBODY DETECTED A positive result indicates infection with Toxoplasma gondii at some time, but does not differentiate between an active or past infection. 54 55 NEGATIVE; NONE OF THE MUTATIONS LISTED BELOW WERE DETECTED 56 This result does not rule out the presence of a mutation or a diagnosis of cystic fibrosis disease (CF).* The risk for mutations that cause CF other than the ones tested depends greatly on family history, clinical presentation, and ethnicity. Chance of Having a CF Mutation Ethnic Group Detection Before After Negative Rate Test Result Ashkenazi Mandaeism 94% 1 in 24 1 in 400 Non- 88% 1 in 25 1 in 208 -Eritrean 72% 1 in 46 1 in 164 -Eritrean 65% 1 in 65 1 in 186 -Eritrean 49% 1 in 94 1 in 184 Other insufficient data available For assistance with interpretation of these results, please contact your local [facility]' genetic counselor or call [employer] ([phone]). 57 G85E (c.254 G>A) 3120+1 G>A(c.2988+1G>A) R334W (c.1000 C>T) 394delTT (c.262_263delTT) V520F (c.1558 G>T) 1717-1 G>A(c.1585-1 G>A) R553X (c.1657 C>T) 1898+1 G>A(c.1766+1 G>A) M9625J(c.3846 G>A) 3659delC (c.3437delC) R347H (c.1040 G>A) 621+1 G>T (c.489+1 G>T) R560T (c.1679 G>C) 3905insT (c.3773_3774insT) U2828C(c.3484 C>T) 2183AA>G (c.2051_2052delAAinsG) W0247S(c.3909 C>G) 711+1 G>T (c.579+1 G>T) R117H (c.350 G>A) T857fim (c.1519_1521delATC) R347P (c.1040 G>T) 2184delA (c.2052delA) G542X (c.1624 G>T) 3876delA (c.3744delA) A455E (c.1364 C>A) 1078delT (c.948delT) S549N (c.1647 G>A) N495aur (c.1521_1523delCTT) S549R (c.1646 A>C) 2789+5 G>A(c.2657+5 G>A) G551D (c.1652 G>A) 3849+10kb C>T (c.4663-0666 C>T) This assay detects thirty-two mutations, including the twenty-three core mutations recommended by the [place] [employer] (ACMG) and the [place] [employer]etric[employer] Gynec[employer] (ACOG) for population-based CF carrier screening. Testing for the intron 8 5T polymorphism is performed only when the R117H mutation is detected. Testing for the I506V and I507V polymorphisms is performed only when a homozygous Delta F508 or Delta I507 mutation is detected. In addition to the ACMG/ACOG panel, this assay detects nine additional mutations. While these mutations are rare in the [place] population, the scientific and medical literature indicates that these mutations are not benign polymorphisms. 58 The mutations listed above are detected by an oligonucleotide ligation assay (BISI) after multiplex- polymerase chain reaction (PCR) amplification of specific CF gene regions. Fluorescent allele-specific reaction products are detected by capillary electrophoresis. Since genetic variation and other factors can affect the accuracy of direct mutation testing, the results of this testing should always be interpreted in light of clinical and familial data. 59 Carter Saez, Ph.D., [facility] Director, Molecular Genetics The performance characteristics of this assay have been determined by [facility]. Performance characteristics refer to the analytical performance of the test. For more information on this test, go to http://education.[employer]/faq/cfscreen 60 Males: < 5.0 miu/ml Non females < 5.0 miu/ml Approx gestational age approx HCG range 0-1 week < 5.0-50 1-2 weeks 50-500 2-3 weeks 100-5000 3-4 weeks 500-10,000 1-2 months 10,000-200,000 2-3 months 15,000-100,000 Please note: The intended use of this assay is the quantitative determination of HCG in human serum or plasma for the early detection of . These assays should not be used to diagnose any condition unrelated to . If an HCG level is inconsistent with, or unsupported by, clinical evidence, results should be confirmed by an alternate HCG method. 61 Males: < 5.0 miu/ml Non females < 5.0 miu/ml Approx gestational age approx HCG range 0-1 week < 5.0-50 1-2 weeks 50-500 2-3 weeks 100-5000 3-4 weeks 500-10,000 1-2 months 10,000-200,000 2-3 months 15,000-100,000 Please note: The intended use of this assay is the quantitative determination of HCG in human serum or plasma for the early detection of . These assays should not be used to diagnose any condition unrelated to . If an HCG level is inconsistent with, or unsupported by, clinical evidence, results should be confirmed by an alternate HCG method. 62 Males: < 5.0 miu/ml Non females < 5.0 miu/ml Approx gestational age approx HCG range 0-1 week < 5.0-50 1-2 weeks 50-500 2-3 weeks 100-5000 3-4 weeks 500-10,000 1-2 months 10,000-200,000 2-3 months 15,000-100,000 Please note: The intended use of this assay is the quantitative determination of HCG in human serum or plasma for the early detection of . These assays should not be used to diagnose any condition unrelated to . If an HCG level is inconsistent with, or unsupported by, clinical evidence, results should be confirmed by an alternate HCG method. Procedures Date Code Description Status 03/01/2019 90106 OB Ultrasound First Trimester Completed 01/03/2019 82892 Echography Transvaginal Completed 01/02/2015 66699 Obstetric Care Routine Completed 10/19/2014 85690 Echography Uterus Limited Completed 10/19/2014 39761 Non-Stress Test Completed 10/01/2014 14102 Injection Intramuscular Or Subcutaneous Completed 09/22/2014 51194 Echography Uterus Limited Completed 08/18/2014 90981 Echography Uterus Complete Completed 06/24/2014 87845 Nuchal Translucency Ultrasound /First Gestation Completed 05/26/2014 96170 OB Ultrasound First Trimester Completed Encounters Type Date Location Provider Dx Diagnosis Office Visit 03/01/2019 [facility] Office Bren KimkrystaCRYSTAL O36.80x1 with 10:40a inconclusive viability, fetus 1 Office Visit 02/15/2019 [facility] Jackelyn Virk, N96 Recurrent 8:30a MD loss Office Visit 01/03/2019 [facility] Office Brittney Joseph, O03.9 Complete or unsp 1:40p CNM spontaneous without complication Office Visit 02/11/2015 [facility] Office Lucas Yeager MD 676.34 Breast Disorder Unsp 10:00a Oth Assoc Cond Compl Office Visit 10/19/2014 Delivery Ike Brown, 789.9 Abdomen & Pelvis 10:19a M.DAnson Symptoms Other 595.0 Cystitis Acute Office Visit 09/22/2014 10:00a [facility] Office Ike Watters 644.03 Premature Labor Babs Brown Threatened Antepartum Cond Or Compl Office Visit 09/19/2013 3:40p [facility] Office Alexa Alvarado, 640.03 Threatened ANP-C Antepartum Condition Or Complication Plan of Treatment 02/15/2019 - Jakcelyn Virk MDN96 Recurrent lossComments:Will do lab w/u and call with results. Needs to call with name of current medication to make sure that it is safe during .
== END 2019-03-25 22:15 | disposition left against medical advice (07) ==
LOC: ED 21:18
DX: O26.90 Pregnancy related conditions, unspecified, unspecified trimester (principal); Z53.21 Procedure and treatment not carried out due to patient leaving prior to being seen by health care provider

== ENCOUNTER 2019-04-09 16:43 | Emergency (ER) | payer OTHER ==
[2019-04-09 16:54] VITALS: BP 105/70
--- NOTE | 2019-04-09 18:23 | UC ---
Complaint Female HPI - HPI Summary HPI Summary: 23-year-old female comes in with a chief complaint of vaginal discharge. The discharge is been going on the last couple of days. States it feels a yeast infection shows gets them after she finishes amoxicillin. Tells me she just finished amoxicillin for pneumonia. She reports that her last period was very heavy 1-2 weeks ago and it was a miscarriage that she had been for 11 weeks. 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 Reports she had an ultrasound at the [facility] office for that particular . Denies any pelvic pain or fevers. No flank pain. - History Of Current Complaint Chief Complaint: UCGU Stated Complaint: UTI Time Seen by Provider: 04/09/19 17:49 Hx Last Menstrual Period: 03/31/19 Pain Intensity: 0 - Allergies/Home Medications Allergies/Adverse Reactions: Allergies Allergy/AdvReac Type Severity Reaction Status Date / Time No Known Allergies Allergy Verified 04/09/19 16:54 PMH/Surg Hx/FS Hx/Imm Hx Previously Healthy: Yes - 4 MISCARRIGES - Surgical History Surgical History: None Surgery Procedure, Year, and Place: denies - Family History Known Family History: Negative: Hypertension - Social History Alcohol Use: None Substance Use Type: None Smoking Status (MU): Never Smoked Tobacco Have You Smoked in the Last Year: No - Immunization History Most Recent Influenza Vaccination: 06/24/14 Most Recent Tetanus Shot: 10/01/14 Most Recent Pneumonia Vaccination: never Vaccination Up to Date: Yes Review of Systems All Other Systems Reviewed And Are Negative: Yes Constitutional: Positive: Negative Skin: Positive: Negative Eyes: Positive: Negative ENT: Positive: Negative Respiratory: Positive: Negative Cardiovascular: Positive: Negative Gastrointestinal: Positive: Negative Genitourinary: Positive: Vaginal/Penile Itching, Vaginal/Penile Discharge Motor: Positive: Negative Neurovascular: Positive: Negative Musculoskeletal: Positive: Negative Neurological: Positive: Negative Psychological: Positive: Negative Is Patient Immunocompromised?: No Physical Exam Triage Information Reviewed: Yes Appearance: Well-Appearing, No Pain Distress, Well-Nourished Vital Signs: Initial Vital Signs Temp 98.4 F 04/09/19 16:46 Pulse 65 04/09/19 16:46 Resp 12 04/09/19 16:46 BP 105/70 04/09/19 16:46 Pulse Ox 99 04/09/19 16:46 Vital Signs Reviewed: Yes Eye Exam: Normal Eyes: Positive: Conjunctiva Clear Neck: Positive: Supple Respiratory: Positive: Lungs clear, Normal breath sounds, No respiratory distress Cardiovascular: Positive: RRR Abdomen Description: Positive: Nontender, Soft. Negative: CVA Tenderness (R), CVA Tenderness (L) Bowel Sounds: Positive: Present Musculoskeletal Exam: Normal Musculoskeletal: Positive: Strength Intact, ROM Intact Neurological: Positive: Alert, Muscle Tone Normal Psychological Exam: Normal Psychological: Positive: Age Appropriate Behavior Skin Exam: Normal Complaint Female Dx - Course Course Of Treatment: Patient Name: BRYAN SCHILLING Medical Record#: [id number] Ordering Physician: Parish Calderon MD Acct.#: [id number] : 1995 Age: 23 Sex: F Location: [facility] Exam Date: 04/09/191818 ADM Status: DEP ER Order Information: US TRANSVAGINAL Accession Number: [id number] CPT: 08773 EXAM: US Pelvis, Transvaginal EXAM DATE/TIME: 04/09/2019 6:58 PM CLINICAL HISTORY: 23 years old, female; Other: Symptoms of yeast infection, recent miscairrage; Additional info: Recent miscarrige, uhcg positive, vag discharge TECHNIQUE: Imaging protocol: Real-time transvaginal pelvic ultrasound with image documentation. Transvaginal imaging was used for better evaluation of the endometrium and adnexa. COMPARISON: PEL/TRANS US PELVIS/TRANSVAG 03/05/2018 2:29 PM FINDINGS: Uterus/cervix: Anteverted anteflexed. Measures 8.9 x 6.3 x 4.8 cm (141 cc). Early proliferative phase endometrium measuring 0.5 cm. Endometrium is heterogeneous and thickened fundus showing no internal vascularity. No myometrial masses. Right adnexa: Right ovary measures 3.3 x 2.0 x 1.8 cm (6 cc). Normal size and echogenicity with no masses. Normal follicles. Normal arterial and venous waveforms. Left adnexa: Left ovary measures 3.5 x 2.0 x 1.8 cm (7 cc). Normal size and echogenicity with no masses. Normal follicles. Normal arterial and venous waveforms. Free fluid: None. IMPRESSION: 1. Focally abnormal fundal endometrium could represent retained products of conception. No intrauterine or extrauterine visualized. 2. Sonographically normal ovaries. To contact [facility] with a general question: [facility] - [phone] For direct physician to physician contact: Physician Hotline - [phone] [facility] ([facility] Facility ID #[id number]) <Electronically signed by Dianna Owen MD in OV> 04/09/19 1940 In clinic after the patient had the ultrasound she needed to leave before the ultrasound report came back. After the ultrasound report was back I called the patient and told her about the findings of potential retained products of conception. I discussed with her the need to call her [facility] first thing tomorrow morning April 10, 2019 for further evaluation and care by them. I also let her know that if she had any pelvic pain or fevers or felt ill she needed to get reevaluated right away. Patient told me she would call her [facility] in the morning. - Differential Dx/Diagnosis Provider Diagnosis: Vaginal yeast infection, Vaginal discharge, Positive test, Retained products of conception Discharge - Sign-Out/Discharge Documenting (check all that apply): Patient Departure All imaging exams completed and their final reports reviewed: Yes - Discharge Plan Condition: Stable Disposition: HOME Prescriptions: Miconazole VAG.SUPP* [Monistat7*] 100 mg VAGINAL BEDTIME #7 vag.supp Patient Education Materials: Trichomoniasis (ED), Yeast Infection (ED) Referrals: Rashid Montanez MD [Primary Care Provider] - Additional Instructions: FOLLOW UP WITH YOUR OBGYN FOR YOUR POSITIVE TEST. GET RECHECKED SOONER IF YOUR CONDITION WORSENS OR ANY QUESTIONS OR CONCERNS. - Billing Disposition and Condition Condition: STABLE Disposition: Home
[2019-04-11 13:06] LABS: Neisseria gonorrhoeae (GC) RNA Negative (Negative)
[2019-04-11 13:26] LABS: Trichomonas vaginalis Result Negative (Negative)
== END 2019-04-09 19:24 | disposition home or self-care (01) ==
LOC: UCEAST 16:43
DX: O02.1 Missed abortion (principal); N89.8 Other specified noninflammatory disorders of vagina; B37.3 Candidiasis of vulva and vagina
CPT/HCPCS: 36415; 76830; 81003; 84702; 87086; 87480; 87491; 87510; 87591; 87661; 99212; G0463

== ENCOUNTER 2019-05-10 10:36 | Emergency (ER) | payer MEDICAID, OTHER ==
[2019-05-10 10:49] VITALS: BP 131/77
--- NOTE | 2019-05-10 13:32 | UC ---
Complaint Female HPI - HPI Summary HPI Summary: PATIENT IS ON DAY 8 OF MENSES. STATES SHE IS HAVING "NORMAL PERIOD BLEEDING" EVERY DAY BUT FOR 1 HOUR PER DAY HAS EXTREMELY HEAVY BLEEDING AND BLOOD CLOTS WHERE SHE NEEDS TO CHANGE HER FEMININE PRODUCT EVERY 15-20 MINUTES. SHE DENIES ANY CHANCE OF . STARTED AN ORAL COMBINED CONTRACEPTIVE PILL A MONTH AGO. STATES THIS SAME THING HAPPENED TO HER ABOUT 6 YEARS AGO WHEN SHE STARTED OCPS. ONLY TOOK THEM FOR ONE MONTH AT THAT TIME AND THEN STOPPED DUE TO THE HEAVY BLEEDING. SHE DENIES ANY FEVER, SHORTNESS OF BREATH, DIZZINESS, HEADACHE. CALLED HER MEDICAL INVESTIGATOR AND WAS GIVEN AN APPOINTMENT IN 4 DAYS ON 05/14/19 AT 10 AM. STATES THEY ADVISED THAT SHE COME HERE SO THAT WE COULD "SLOW HER BLEEDING ". - History Of Current Complaint Chief Complaint: UCGU Stated Complaint: PERSONAL Time Seen by Provider: 05/10/19 10:46 Hx Obtained From: Patient Hx Last Menstrual Period: 05/10/19 Onset/Duration: Lasting Days, Still Present Timing: Constant Severity Initially: Moderate Severity Currently: Moderate Pain Intensity: 0 Pain Scale Used: 0-10 Numeric Character: Sharp Aggravating Factor(s): Nothing Alleviating Factor(s): Nothing Associated Signs And Symptoms: Positive: Vaginal Bleeding/Discharge. Negative: Fever, Back Pain, Nausea - Allergies/Home Medications Allergies/Adverse Reactions: Allergies Allergy/AdvReac Type Severity Reaction Status Date / Time bee venom protein (honey bee) Allergy Swelling Verified 05/10/19 10:49 Home Medications: Home Medications Norgestimate-Ethinyl Estradiol [Sprintec 28 Day Tablet] 1 tab PO DAILY 05/10/19 [History Confirmed 05/10/19] PMH/Surg Hx/FS Hx/Imm Hx Previously Healthy: Yes - Surgical History Surgical History: None Surgery Procedure, Year, and Place: denies - Family History Known Family History: Negative: Hypertension - Social History Alcohol Use: None Substance Use Type: None Smoking Status (MU): Never Smoked Tobacco Have You Smoked in the Last Year: No - Immunization History Most Recent Influenza Vaccination: 06/24/14 Most Recent Tetanus Shot: 10/01/14 Most Recent Pneumonia Vaccination: never Vaccination Up to Date: Yes Review of Systems All Other Systems Reviewed And Are Negative: Yes Constitutional: Positive: Negative Respiratory: Positive: Negative Cardiovascular: Positive: Negative Gastrointestinal: Positive: Negative Genitourinary: Positive: Abnormal Bleeding. Negative: Dysuria Physical Exam Triage Information Reviewed: Yes Appearance: Well-Appearing, No Pain Distress, Well-Nourished Vital Signs: Initial Vital Signs Temp 98.7 F 05/10/19 10:44 Pulse 70 05/10/19 10:44 Resp 18 05/10/19 10:44 BP 131/77 05/10/19 10:44 Pulse Ox 99 05/10/19 10:44 Vital Signs Reviewed: Yes Eyes: Positive: Conjunctiva Clear ENT: Positive: Hearing grossly normal Neck: Positive: Supple Respiratory: Positive: No respiratory distress, No accessory muscle use Cardiovascular: Positive: Pulses Normal Abdomen Description: Positive: Soft, Other: - MILDLY TENDER SUPRAPUBIC AREA. Negative: CVA Tenderness (R), CVA Tenderness (L), Distended, Guarding Musculoskeletal: Positive: No Edema Neurological: Positive: Alert Psychological: Positive: Age Appropriate Behavior Skin: Negative: Rashes Diagnostics - Radiology TRANSVAGINAL US Radiology Interpretation Completed By: Radiologist Summary of Radiographic Findings: THERE IS A FOCAL AREA OF INCREASED ECHOGENICITY WITHIN THE ENDOMETRIAL CAVITY MOST CONSISTENT WITH AN AREA OF HEMORRHAGE OR CLOT LESS LIKELY A POLYP. Complaint Female Dx - Course Course Of Treatment: TRANSVAGINAL ULTRASOUND SHOWS A FOCAL AREA OF INCREASED ECHOGENICITY WITHIN THE ENDOMETRIAL CAVITY MOST CONSISTENT WITH AN AREA OF HEMORRHAGE OR CLOT LESS LIKELY A POLYP. PATIENT HAS FOLLOW-UP WITH HER PARTY CHIEF IN 4 DAYS. ENCOURAGED HER TO KEEP THIS APPOINTMENT. TO THE ER WITHOUT FAIL IF HER SYMPTOMS WORSEN. - Differential Dx/Diagnosis Provider Diagnosis: DUB (dysfunctional uterine bleeding) Discharge - Sign-Out/Discharge Documenting (check all that apply): Patient Departure All imaging exams completed and their final reports reviewed: Yes - Discharge Plan Condition: Stable Disposition: HOME Patient Education Materials: Dysfunctional Uterine Bleeding (ED) Referrals: Rashid Montanez MD [Primary Care Provider] - If Needed Additional Instructions: TRANSVAGINAL ULTRASOUND TODAY SHOWED A FOCAL AREA OF INCREASED ECHOGENICITY WITHIN THE ENDOMETRIAL CAVITY MOST CONSISTENT WITH AN AREA OF HEMORRHAGE OR CLOT LESS LIKELY A POLYP. KEEP YOUR FOLLOW-UP APPOINTMENT WITH YOUR PARTY CHIEF IN 4 DAYS. GO TO THE ER WITHOUT FAIL IF YOU DEVELOP HEAVIER BLEEDING, SHORTNESS OF BREATH, RAPID HEART RATE, DIZZINESS, FAINTNESS, WEAKNESS OR ANY OTHER CONCERNING SYMPTOMS. - Billing Disposition and Condition Condition: STABLE Disposition: Home
== END 2019-05-10 12:25 | disposition home or self-care (01) ==
LOC: UCEAST 10:36
DX: N93.8 Other specified abnormal uterine and vaginal bleeding (principal)
CPT/HCPCS: 76830; 99211; G0463

== ENCOUNTER 2019-09-05 18:48 | Emergency (ER) | payer OTHER ==
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
[2019-09-05] MEDS ORDERED: Iodixanol* (CONTRAST) 320 MG/ML 100 ML SDV IV ONE (20:10)
[2019-09-05 20:16] LABS: ABS Lymphocytes 1.5 10^3/ul (1.0-4.8); ABS Monocytes 0.8 10^3/ul (0-0.8); ABS Neutrophils 9.8 10^3/ul (1.5-7.7); Eosinophil % 0.3 %; Hematocrit 38 % (35-47); Hemoglobin 13.1 g/dL (12.0-16.0); Lymphocyte % 12.3 %; Mean Corpuscular HGB Conc 34 g/dL (31-36); Mean Corpuscular Hemoglobin 32 pg (27-31); Mean Corpuscular Volume 93 fL (80-97); Mean Platelet Volume 8.1 fL (7.4-10.4); Platelet Count 222 10^3/uL (150-450); Red Blood Count 4.13 10^6 /uL (3.70-4.87); Red Cell Distribution Width 13 % (10-15); White Blood Count 12.2 10^3/uL (3.5-10.8)
[2019-09-05 20:39] LABS: HCG Pregnancy < 0.60 mIU/mL
[2019-09-05 20:59] LABS: ALT 36 U/L (7-52); AST 51 U/L (13-39); Albumin 4.4 g/dL (3.2-5.2); Albumin/Globulin Ratio 1.5 (1-3); Alkaline Phosphatase 77 U/L (34-104); Anion Gap 10 mmol/L (2-11); Blood Urea Nitrogen 9 mg/dL (6-24); CO2 Carbon Dioxide 22 mmol/L (22-32); Calcium 9.8 mg/dL (8.6-10.3); Chloride 106 mmol/L (101-111); Creatine Kinase 71 U/L (10-223); EGFR African American 126.5 (>60); EGFR Non-African American 104.5 (>60); Glucose 110 mg/dL (70-100); Potassium 3.6 mmol/L (3.5-5.0); Sodium 138 mmol/L (135-145); Total Protein 7.4 g/dL (6.4-8.9)
[2019-09-05] MEDS ORDERED: Ketorolac INJ* 30 MG/ML 1 ML VIAL IV PUSH ONE (21:27)
[2019-09-05] MEDS ORDERED: Cyclobenzaprine TAB* 10 MG PO ONE (21:27)
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
[2019-09-05 22:25] VITALS: BP 148/72
== END 2019-09-05 22:24 | disposition home or self-care (01) ==
LOC: ED 18:48
DX: M54.9 Dorsalgia, unspecified (principal); R10.9 Unspecified abdominal pain; V49.40XA Driver injured in collision with unspecified motor vehicles in traffic accident, initial encounter; Y92.410 Unspecified street and highway as the place of occurrence of the external cause; I10 Essential (primary) hypertension; Z79.899 Other long term (current) drug therapy
CPT/HCPCS: 36415; 71260; 72128; 72131; 74177; 80053; 82550; 83605; 84702; 85025; 96374; 99283; A9270-GY; J1885; Q9967

== ENCOUNTER 2023-07-04 08:55 | Inpatient (IN) ==
[2023-07-04] MEDS ORDERED: Lactated Ringers 1000 ml BAG 1,000 ML IV ONE ×2 (10:01→22:50)
[2023-07-04] MEDS ORDERED: Buffered Lidocaine 1% SYRIN 1 ml INTRADERM ONE (10:01)
[2023-07-04] MEDS ORDERED: Lidocaine 1% VIAL 10 MG/ML 30 ML VIAL INJ PRN (10:01)
[2023-07-04] MEDS ORDERED: Oxytocin in LR 20,000 MILLI.UNIT/1,000 ML BAG IV SCH (10:05)
[2023-07-04] MEDS: Lactated Ringers 1000 ml BAG 1,000 ML IV SCH ×2 (11:25→23:00)
[2023-07-04 11:46] LABS: ABS Lymphocytes 1.5 10^3/uL (1.0-4.8); ABS Monocytes 0.3 10^3/uL (0.0-0.9); ABS Neutrophils 5.5 10^3/uL (1.5-7.6); Eosinophil % 0.5 %; Hematocrit 31.5 % (35-45); Mean Corpuscular Hemoglobin 32.1 pg (27-33); Mean Corpuscular Hgb Conc 34.9 g/dL (31-36); Mean Corpuscular Volume 91.8 fL (80-97); Mean Platelet Volume 8.8 fL (7.5-11.2); Platelet Count 224 10^3/uL (150-450); Red Blood Count 3.43 10^6/uL (3.63-4.92); Red Cell Distribution Width 13.4 % (12-17); White Blood Count 7.4 10^3/uL (3.8-11.8)
[2023-07-04 13:24] LABS: Urine Benzodiazepine Screen None Detected (None Detect); Urine Cannabinoids Screen None Detected (None Detect); Urine Opiates Screen None Detected (None Detect)
[2023-07-04] MEDS ORDERED: fentaNYL 100 mcg/2 ml 50 MCG/ML VIAL ONE (22:35)
[2023-07-04] MEDS ORDERED: Phenylephrine 40 mcg/mL 10mL (400mcg) SYRINGE IV PUSH PRN ×2 (22:50)
[2023-07-04] MEDS ORDERED: Sodium Citrate/Citric Acid LIQ 15 ML UDC PO PRN (22:50)
[2023-07-04] MEDS ORDERED: Lactated Ringers 1000 ml BAG 1,000 ML IV SCH (23:00)
[2023-07-05] MEDS ORDERED: Glycerin ADULT 2.4 gm SUPP PR PRN (00:52)
[2023-07-05] MEDS ORDERED: Measles, Mumps,Rubella VACC 0.5 ML/VIAL SUBCUT ONE (00:52)
[2023-07-05] MEDS ORDERED: Witch Hazel PAD JAR TOPICAL PRN (00:52)
[2023-07-05] MEDS ORDERED: Oxytocin in LR 20,000 MILLI.UNIT/1,000 ML BAG IV SCH (00:55)
[2023-07-05] MEDS ORDERED: Lactated Ringers 1000 ml BAG 1,000 ML IV SCH (01:00)
[2023-07-05] MEDS: Dibucaine 1% OINT 28.35 GM TUBE PR PRN ×2 (02:13→16:49)
[2023-07-06 06:50] LABS: ABS Eosinophils 0.1 10^3/uL (0.0-0.5); ABS Lymphocytes 1.9 10^3/uL (1.0-4.8); ABS Monocytes 0.4 10^3/uL (0.0-0.9); Eosinophil % 1.7 %; Hematocrit 27.7 % (35-45); Hemoglobin 9.6 g/dL (11.5-14.3); Lymphocyte % 29.8 %; Mean Corpuscular Hgb Conc 34.6 g/dL (31-36); Mean Corpuscular Volume 92.5 fL (80-97); Platelet Count 187 10^3/uL (150-450); Red Blood Count 2.99 10^6/uL (3.63-4.92); Red Cell Distribution Width 13.4 % (12-17); White Blood Count 6.5 10^3/uL (3.8-11.8)
[2023-07-06 08:29] VITALS: BP 122/70
== END 2023-07-06 12:17 | disposition home or self-care (01) | DRG 560 ==
LOC: MCHOBOUT 08:55 → MCHOB 09:56
PROVIDERS: ADMIT Midwife; ATTEND Midwife